=== PATIENT | male | born 1985 | race Caucasian/White ===

== ENCOUNTER 2018-12-31 20:27 | Emergency (ER) | payer BC ==
[~2018-12-31] VITALS: Ht 177.8 cm; Wt 72.7 kg
[~2018-12-31 20:27] MED LIST: NO HOME MEDICATIONS; NORCO 325 MG-7.1 TAB PO; PERCOCET 325 MG1 TA2 PO; ZOFRAN 4MG T4 MG/TAB PO
[2018-12-31 20:29] VITALS: TEMP 97.7
[2018-12-31 20:40] LABS: HEMATOCRIT 43.8 % (42.0-52.0); HEMOGLOBIN 15.2 g/dl (13.5-18.0); MEAN CELL VOLUME 88 fl (80.0-100.0); MEAN CORPUSCULAR HEMOGLOBIN 31 pg (27.0-31.0); MEAN CORPUSCULAR HGB CONC 35 g/dl (33.0-37.0); MEAN PLATELET VOLUME 9.4 fl (7.4-10.4); PLATELET COUNT 262 K/mm3 (130-400); RED BLOOD COUNT 4.96 M/mm3 (4.20-5.60); REDCELL DISTRIBUTION WIDTH-CV 12.6 % (11.5-14.5)
[2018-12-31 20:52] LABS: ALBUMIN 4.2 gm/dL (3.5-5.0); BILIRUBIN,TOTAL 0.5 mg/dL (0.0-1.0); CALCIUM 9.1 mg/dL (8.4-10.2); CREATININE, serum 0.88 (0.66-1.25); POTASSIUM 4.3 mmol/L (3.4-5.0); TOTAL PROTEIN 7.2 gm/dL (6.4-8.2)
[2018-12-31 21:18] LABS: EOSINOPHIL 2 % (0-4); LYMPHOCYTE 59 % (20.0-51.0); NEUTROPHILS 34 % (42.0-75.2); PLATELET ESTIMATE NORMAL (NORMAL)
[2018-12-31] MEDS ORDERED: ZOFRAN ODT4 MG PO (22:14)
[2018-12-31] MEDS ORDERED: NORCO 325 MG-51 TAB PO (22:14)
[2018-12-31 22:51] VITALS: BP 140/76; PULSE 80
== END 2018-12-31 22:45 | disposition home or self-care (01) ==
LOC: COL.ER 20:27
PROVIDERS: Emergency Medicine
DX: N20.1 Calculus of ureter (principal); N23 Unspecified renal colic; Z87.442 Personal history of urinary calculi
CPT/HCPCS: J0780; J1170; J1885; J7030

== ENCOUNTER 2019-03-17 09:54 | Emergency (ER) | payer BC ==
[~2019-03-17] VITALS: Ht 177.8 cm; Wt 81.8 kg
[~2019-03-17 09:54] MED LIST changes: +NORCO 325 MG-51 TAB PO; +ZOFRAN ODT4 MG PO
[2019-03-17 09:59] VITALS: TEMP 97.6
[2019-03-17 10:24] LABS: BASO # 0.1 (0.0-0.2); BASO % 0.4 % (0.0-2.0); EOS # 0.3 (0.0-0.7); EOS % 2.2 % (0-4.0); GRAN # 8.1 (1.4-6.5); GRAN % 66.6 % (42.2-75.2); HEMATOCRIT 43.1 % (42.0-52.0); HEMOGLOBIN 14.9 g/dl (13.5-18.0); LYMPH # 2.6 (1.2-3.4); LYMPH % 21.2 % (20.0-51.0); MEAN CELL VOLUME 89 fl (80.0-100.0); MEAN CORPUSCULAR HEMOGLOBIN 31 pg (27.0-31.0); MEAN CORPUSCULAR HGB CONC 35 g/dl (33.0-37.0); MEAN PLATELET VOLUME 9.7 fl (7.4-10.4); MONO # 1.1 (0.1-0.6); MONO % 9.1 % (1.7-9.3); PLATELET COUNT 241 K/mm3 (130-400); RED BLOOD COUNT 4.84 M/mm3 (4.20-5.60); REDCELL DISTRIBUTION WIDTH-CV 12.6 % (11.5-14.5)
[2019-03-17 10:28] LABS: ALBUMIN 4.2 gm/dL (3.5-5.0); BILIRUBIN,TOTAL 0.3 mg/dL (0.0-1.0); CALCIUM 8.9 mg/dL (8.4-10.2); CREATININE, serum 1.08 (0.66-1.25); POTASSIUM 4.5 mmol/L (3.4-5.0); TOTAL PROTEIN 7.4 gm/dL (6.4-8.2)
[2019-03-17 11:19] LABS: COLLECTION METHOD CLEAN CATCH
[2019-03-17 11:24] LABS: MUCOUS Present /lpf; PH 5 (5-8); SQUAMOUS EPITHELIAL None Seen /hpf; URINE APPEARANCE Clear; URINE BACTERIA None Seen /hpf; URINE BILIRUBIN Negative (NEGATIVE); URINE BLOOD 2+ (NEGATIVE); URINE COLOR Yellow; URINE GLUCOSE Negative (NEGATIVE); URINE KETONE Negative (NEGATIVE); URINE LEUKOCYTE ESTERASE Negative (NEGATIVE); URINE NITRATE Negative (NEGATIVE); URINE PROTEIN(semi-quant) Negative (NEGATIVE); URINE UROBILINOGEN Negative (NEGATIVE)
[2019-03-17] MEDS ORDERED: NORCO 325 MG-51 TAB PO (11:35)
[2019-03-17] MEDS ORDERED: FLOMAX 0.40.4 MG/CAP PO (11:35)
[2019-03-17 12:07] VITALS: BP 129/80; PULSE 62
[2019-03-17] MEDS ORDERED: ATARAX50 MG PO (12:15)
== END 2019-03-17 12:07 | disposition home or self-care (01) ==
LOC: COL.ER 09:54
PROVIDERS: Emergency Medicine; Physician Assistant
DX: N20.2 Calculus of kidney with calculus of ureter (principal); Z87.442 Personal history of urinary calculi
CPT/HCPCS: J1170; J1885; J2405; J7030; Q9967